=== PATIENT | female | born 1960 | race Caucasian/White ===

== ENCOUNTER 2018-10-30 15:01 | Inpatient (IN) | payer OTHER ==
[2018-10-30 16:45] VITALS: BMI 19.5
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
[2018-10-30] MEDS ORDERED: NICOTINE POLACRILEX 2 MG GUM BUC PRN (21:00)
[2018-10-30] MEDS ORDERED: BISMUTH SUBSALICYLATE 524 MG/30 ML UD PO PRN (21:00)
[2018-10-30] MEDS ORDERED: ACETAMINOPHEN 325 MG TABLET (FP) PO PRN ×2 (21:00)
[2018-10-30] MEDS ORDERED: MENTHOL/PHENOL 1 EACH UD MM PRN (21:00)
[2018-10-30] MEDS ORDERED: MAGNESIUM CITRATE 300 ML BOTTLE PO PRN (21:00)
[2018-10-30] MEDS ORDERED: MAG HYDROX/AL HYDROX/SIMETH 30 ML UNIT-DOSE CUP PO PRN (21:00)
[2018-10-30] MEDS ORDERED: MAGNESIUM HYDROX 2400MG/30ML ORAL SUSPENSION 30 ML CUP PO PRN (21:00)
[2018-10-30] MEDS ORDERED: ALBUTEROL SO4 8 GM HFA INHALER IH PRN (21:53)
[2018-10-30] MEDS: THIAMINE HCL 100 MG TABLET (FP) PO SCH (22:14)
[2018-10-30] MEDS: GABAPENTIN 100 MG CAPSULE (FP) PO SCH (22:15)
[2018-10-30] MEDS: diazePAM 5 MG TABLET PO SCH (22:16)
[2018-10-31] MEDS ORDERED: METHADONE HCL 10 MG TABLET PO SCH (07:30)
[2018-10-31] MEDS: diazePAM 5 MG TABLET PO SCH ×3 (07:55→22:27)
[2018-10-31] MEDS ORDERED: METHADONE HCL 10 MG TABLET ONE (08:16)
[2018-10-31] MEDS ORDERED: METHADONE HCL 40 MG DISPERSABLE TABLET ONE (08:17)
[2018-10-31] MEDS: METHADONE 80 MG, METHADONE 10 MG PO SCH (08:46)
[2018-10-31] MEDS: IBUPROFEN 400 MG TABLET (FP) PO PRN (08:47)
[2018-10-31] MEDS: GABAPENTIN 100 MG CAPSULE (FP) PO SCH ×2 (10:22→22:26)
[2018-10-31] MEDS: PRENATAL VITAMINS W/ FOLIC ACID TABLET (FP) PO SCH (10:22)
[2018-10-31] MEDS: diazePAM 5 MG TABLET PO PRN (10:23)
[2018-10-31] MEDS: NICOTINE 14 MG/24 HOURS TOPICAL PATCH TD SCH (10:23)
[2018-10-31 10:49] LABS: HEMATOCRIT 31.5 % (32.4-45.2); HEMOGLOBIN 10.4 GM/dL (10.7-15.3); MCH 31.7 pg (25.7-33.7); MEAN CELL VOLUME 96.1 fl (80-96); MEAN PLT VOLUME 8.5 fl (7.5-11.1); PLATELET COUNT 261 K/MM3 (134-434); RBC 3.27 M/mm3 (3.60-5.2); RDW 14.4 % (11.6-15.6); WHITE BLOOD COUNT 2.7 K/mm3 (4.0-10.0)
[2018-10-31 11:01] LABS: ALBUMIN 3.4 g/dl (3.4-5.0); BILIRUBIN,TOTAL 1.2 mg/dL (0.2-1); BLOOD UREA NITROGEN 12.8 mg/dL (7-18); CALCIUM 8.8 mg/dL (8.5-10.1); CREATININE 0.7 mg/dL (0.55-1.3); POTASSIUM 4.6 mmol/L (3.5-5.1); TOT PROT 6.6 g/dl (6.4-8.2)
--- NOTE | 2018-10-31 11:40 | PN ---
[facility] CIWA - CIWA Score Nausea/Vomitin Muscle Tremors: 3 Anxiety: 2 Agitation: 2 Paroxysmal Sweats: 2 Orientation: 0-Oriented Tacttile Disturbances: 0-None Auditory Disturbances: 0-None Visual Disturbances: 0-None Headache: 1-Very Mild CIWA-Ar Total Score: 16 S COWS - Scale Resting Pulse: 0= IN 80 or Below Sweatin= Chills/Flushing Restless Observation: 1= Difficult to Sit Still Pupil Size: 0= Normal to Room Light Bone or Joint Aches: 2= Severe Diffuse Aches Runny Nose/ Eye Tearin= Nasal Congestion GI Upset > 30mins: 3= Vomiting/Diarrhea Tremor Observation of Outstretched Hands: 2= Slight Tremor Visible Yawning Observation: 0= None Anxiety or Irritability: 1=Feels Anxious/Irritable Goose Flesh Skin: 0=Smooth Skin COWS Score: 11 S Progress Note (SOAP) Subjective: Patient is still having withdrawal symptoms from alcohol and opioids. She is very uncomfortable. Objective: 10/31/18 11:40 Vitals: BP: 120/76 P:63/min R:18/min T:98.1 Patient agitated and seen while pacing hallway with blanket over her shoulders. Laboratory 10/31/18 10/31/18 07:00 07:00 WBC 2.7 K/mm3 L K/mm3 (4.0-10.0) RBC 3.27 M/mm3 L M/mm3 (3.60-5.2) Hgb 10.4 GM/dL L GM/dL (10.7-15.3) Hct 31.5 % L % (32.4-45.2) MCV 96.1 fl H fl (80-96) MCH 31.7 pg pg (25.7-33.7) MCHC 33.0 g/dl g/dl (32.0-36.0) RDW 14.4 % % (11.6-15.6) Plt Count 261 K/MM3 K/MM3 (134-434) MPV 8.5 fl fl (7.5-11.1) Sodium 144 mmol/L mmol/L (136-145) Potassium 4.6 mmol/L mmol/L (3.5-5.1) Chloride 110 mmol/L H mmol/L (98-107) Carbon Dioxide 31 mmol/L mmol/L (21-32) Anion Gap 3 MMOL/L L MMOL/L (8-16) BUN 12.8 mg/dL mg/dL (7-18) Creatinine 0.7 mg/dL mg/dL (0.55-1.3) Est GFR (CKD-EPI)AfAm 110.69 Est GFR (CKD-EPI)NonAf 95.50 Random Glucose 81 mg/dL mg/dL (74-106) Calcium 8.8 mg/dL mg/dL (8.5-10.1) Total Bilirubin 1.2 mg/dL H mg/dL (0.2-1) AST 13 U/L L U/L (15-37) ALT 16 U/L U/L (13-61) Alkaline Phosphatase 61 U/L U/L (45-117) Total Protein 6.6 g/dl g/dl (6.4-8.2) Albumin 3.4 g/dl g/dl (3.4-5.0) 10/31/18 11:41 Assessment: 10/31/18 11:43 1. Opiate Dependence and Alcohol Withdrawals, uncomplicated 10/31/18 11:45 Plan: 1. Alcohol Withdrawals: Patient has just started protocol. Advised patient to be patient She just received her methadone dose. Continue protocol. 2. Microcytic Anemia: Most likely iron deficiency. Will add iron supplementation 3. HyperChloremia: May be secondary to dehydration and vomitting. Will encourage more po fluids. Dr. Pastor
[2018-10-31] MEDS: FERROUS SO4 325 MG TABLET (FP) PO SCH (13:11)
--- NOTE | 2018-10-31 13:46 | EKG ---
Test Reason : Blood Pressure : / mmHG Vent. Rate : 055 BPM Atrial Rate : 055 BPM P-R Int : 136 ms QRS Dur : 078 ms QT Int : 464 ms P-R-T Axes : 066 071 064 degrees QTc Int : 443 ms SINUS BRADYCARDIA WITH SINUS ARRHYTHMIA VOLTAGE CRITERIA FOR LEFT VENTRICULAR HYPERTROPHY NO PREVIOUS ECGS AVAILABLE Confirmed by DAVID MCMILLAN MD ([id number]) on 10/31/2018 1:45:36 PM Referred By: Confirmed By:DAVID MCMILLAN MD
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
[2018-10-31] MEDS: THIAMINE HCL 100 MG TABLET (FP) PO SCH (22:27)
[2018-10-31] MEDS: METHOCARBAMOL 500 MG TABLET PO PRN (22:28)
[2018-11-01] MEDS ORDERED: METHADONE HCL 40 MG DISPERSABLE TABLET ONE (04:46)
[2018-11-01] MEDS ORDERED: METHADONE HCL 10 MG TABLET ONE (04:46)
[2018-11-01] MEDS: diazePAM 5 MG TABLET PO SCH ×2 (06:07→17:47)
[2018-11-01] MEDS: METHADONE 80 MG, METHADONE 10 MG PO SCH (06:07)
[2018-11-01] MEDS: PRENATAL VITAMINS W/ FOLIC ACID TABLET (FP) PO SCH (10:08)
[2018-11-01] MEDS: NICOTINE 14 MG/24 HOURS TOPICAL PATCH TD SCH (10:08)
[2018-11-01] MEDS: FERROUS SO4 325 MG TABLET (FP) PO SCH (10:08)
[2018-11-01] MEDS: GABAPENTIN 100 MG CAPSULE (FP) PO SCH ×2 (10:08→22:32)
[2018-11-01] MEDS: METHOCARBAMOL 500 MG TABLET PO PRN ×2 (10:09→22:33)
[2018-11-01] MEDS: diazePAM 5 MG TABLET PO PRN ×2 (10:51→22:33)
--- NOTE | 2018-11-01 13:15 | PN ---
S CIWA - CIWA Score Nausea/Vomitin-No Nausea/No Vomiting Muscle Tremors: None Anxiety: 3 Agitation: 0-Normal Activity Paroxysmal Sweats: 3 Orientation: 0-Oriented Tacttile Disturbances: 0-None Auditory Disturbances: 0-None Visual Disturbances: 0-None Headache: 0-None Present CIWA-Ar Total Score: 6 BHS Progress Note (SOAP) Subjective: c/o anxiety and sweats. Objective: 11/01/18 13:14 Vital Signs 11/01/18 11/01/18 06:51 10:52 Temperature 97 F L 97.5 F L Pulse Rate 67 75 Respiratory 18 18 Rate Blood Pressure 98/62 110/73 Lab Results WBC 2.7 K/mm3 (4.0-10.0) L 10/31/18 07:00 RBC 3.27 M/mm3 (3.60-5.2) L 10/31/18 07:00 Hgb 10.4 GM/dL (10.7-15.3) L 10/31/18 07:00 Hct 31.5 % (32.4-45.2) L 10/31/18 07:00 MCV 96.1 fl (80-96) H 10/31/18 07:00 MCHC 33.0 g/dl (32.0-36.0) 10/31/18 07:00 RDW 14.4 % (11.6-15.6) 10/31/18 07:00 Plt Count 261 K/MM3 (134-434) 10/31/18 07:00 Sodium 144 mmol/L (136-145) 10/31/18 07:00 Potassium 4.6 mmol/L (3.5-5.1) 10/31/18 07:00 Chloride 110 mmol/L (98-107) H 10/31/18 07:00 Carbon Dioxide 31 mmol/L (21-32) 10/31/18 07:00 Anion Gap 3 MMOL/L (8-16) L 10/31/18 07:00 BUN 12.8 mg/dL (7-18) 10/31/18 07:00 Creatinine 0.7 mg/dL (0.55-1.3) 10/31/18 07:00 Random Glucose 81 mg/dL (74-106) 10/31/18 07:00 Calcium 8.8 mg/dL (8.5-10.1) 10/31/18 07:00 Labs noted. Assessment: 11/01/18 13:14 AOX3, in no acute respiratory distress Full ROM, ambulating in the unit. withdrawal symptoms. Pt is for discharge tomorrow Plan: continue detox. Discharge in AM.
[2018-11-01 17:32] LABS: URINE APPEARANCE CLEAR; URINE BILIRUBIN NEGATIVE (NEGATIVE); URINE COLOR YELLOW; URINE GLUCOSE (UA) NEGATIVE (NEGATIVE); URINE KETONE NEGATIVE (NEGATIVE); URINE LEUK ESTERASE NEGATIVE (NEGATIVE); URINE NITRITE NEGATIVE (NEGATIVE); URINE PROTEIN NEGATIVE (NEGATIVE); URINE UROBILINOGEN 0.2 mg/dL (0.2-1.0)
[2018-11-01] MEDS: THIAMINE HCL 100 MG TABLET (FP) PO SCH (22:32)
[2018-11-02] MEDS: diazePAM 5 MG TABLET PO PRN ×2 (03:52→10:09)
[2018-11-02] MEDS ORDERED: METHADONE HCL 10 MG TABLET ONE (04:31)
[2018-11-02] MEDS ORDERED: METHADONE HCL 40 MG DISPERSABLE TABLET ONE (04:31)
[2018-11-02] MEDS: METHADONE 80 MG, METHADONE 10 MG PO SCH (05:30)
[2018-11-02] MEDS: METHOCARBAMOL 500 MG TABLET PO PRN (05:31)
[2018-11-02] MEDS ORDERED: diazePAM 5 MG TABLET PO ONE (06:00)
[2018-11-02 09:46] VITALS: BP 104/64; PULSE 82; TEMP 98.2
[2018-11-02] MEDS: PRENATAL VITAMINS W/ FOLIC ACID TABLET (FP) PO SCH (10:09)
[2018-11-02] MEDS: FERROUS SO4 325 MG TABLET (FP) PO SCH (10:09)
[2018-11-02] MEDS: GABAPENTIN 100 MG CAPSULE (FP) PO SCH (10:09)
[2018-11-02] MEDS: IBUPROFEN 400 MG TABLET (FP) PO PRN (10:10)
[2018-11-02] MEDS: NICOTINE 14 MG/24 HOURS TOPICAL PATCH TD SCH (11:05)
--- NOTE | 2018-11-02 12:13 | DS ---
[facility] Detox Discharge Summary Admission Date: 10/30/18 Discharge Date: 11/02/18 - History Present History: Alcohol Dependence, Sedative Dependence Additional Comments: 57 years old female admitted on 10/31/18 for acute alcohol and benzo withdrawal sx management doing well with valium detox protocol and methadone 90 mg po daily no complication throughout the detox stay alert oriented x 3 speech clearly steady gait denies chest pain no shortness of breathe clear lung bilaterally abdomen soft none tender Pertinent Past History: asthma anemia - Physical Exam Results Vital Signs: Vital Signs Temperature 98.2 F 11/02/18 09:45 Pulse Rate 82 11/02/18 09:45 Respiratory Rate 18 11/02/18 09:45 Blood Pressure 104/64 11/02/18 09:45 O2 Sat by Pulse Oximetry (%) Pertinent Admission Physical Exam Findings: alcohol and benzo withdrawal sx Laboratory Last Values WBC 2.7 K/mm3 (4.0-10.0) L 10/31/18 07:00 RBC 3.27 M/mm3 (3.60-5.2) L 10/31/18 07:00 Hgb 10.4 GM/dL (10.7-15.3) L 10/31/18 07:00 Hct 31.5 % (32.4-45.2) L 10/31/18 07:00 MCV 96.1 fl (80-96) H 10/31/18 07:00 MCH 31.7 pg (25.7-33.7) 10/31/18 07:00 MCHC 33.0 g/dl (32.0-36.0) 10/31/18 07:00 RDW 14.4 % (11.6-15.6) 10/31/18 07:00 Plt Count 261 K/MM3 (134-434) 10/31/18 07:00 MPV 8.5 fl (7.5-11.1) 10/31/18 07:00 Sodium 144 mmol/L (136-145) 10/31/18 07:00 Potassium 4.6 mmol/L (3.5-5.1) 10/31/18 07:00 Chloride 110 mmol/L (98-107) H 10/31/18 07:00 Carbon Dioxide 31 mmol/L (21-32) 10/31/18 07:00 Anion Gap 3 MMOL/L (8-16) L 10/31/18 07:00 BUN 12.8 mg/dL (7-18) 10/31/18 07:00 Creatinine 0.7 mg/dL (0.55-1.3) 10/31/18 07:00 Est GFR (CKD-EPI)AfAm 110.69 10/31/18 07:00 Est GFR (CKD-EPI)NonAf 95.50 10/31/18 07:00 Random Glucose 81 mg/dL (74-106) 10/31/18 07:00 Calcium 8.8 mg/dL (8.5-10.1) 10/31/18 07:00 Total Bilirubin 1.2 mg/dL (0.2-1) H 10/31/18 07:00 AST 13 U/L (15-37) L 10/31/18 07:00 ALT 16 U/L (13-61) 10/31/18 07:00 Alkaline Phosphatase 61 U/L (45-117) 10/31/18 07:00 Total Protein 6.6 g/dl (6.4-8.2) 10/31/18 07:00 Albumin 3.4 g/dl (3.4-5.0) 10/31/18 07:00 Urine Color Yellow 11/01/18 Unknown Urine Appearance Clear 11/01/18 Unknown Urine pH 5.0 (5.0-8.0) 11/01/18 Unknown Ur Specific [place] 1.021 (1.010-1.035) 11/01/18 Unknown Urine Protein Negative (NEGATIVE) 11/01/18 Unknown Urine Glucose (UA) Negative (NEGATIVE) 11/01/18 Unknown Urine Ketones Negative (NEGATIVE) 11/01/18 Unknown Urine Blood Negative (NEGATIVE) 11/01/18 Unknown Urine Nitrite Negative (NEGATIVE) 11/01/18 Unknown Urine Bilirubin Negative (NEGATIVE) 11/01/18 Unknown Urine Urobilinogen 0.2 mg/dL (0.2-1.0) 11/01/18 Unknown Ur Leukocyte Esterase Negative (NEGATIVE) 11/01/18 Unknown RPR Titer Nonreactive (NONREACTIVE) 10/31/18 07:00 lab noted - Treatment Hospital Course: Detox Protocol Followed, Detoxed Safely, Responded well, Discharged Condition Good, Rehab Referral Accepted Patient has Accepted [facility] - Medication Discharge Medications: Ambulatory Orders Albuterol Sulfate [Proventil HFA Inhaler -] 1 - 2 inh PO PRN PRN #0 [email or web address] 12/28/12 Gabapentin [Neurontin -] 200 mg PO BID #120 capsule 12/28/12 Ferrous Sulfate [Feosol] 325 mg PO DAILY 11/02/18 - Diagnosis (1) Anemia Status: Chronic Qualifiers: Anemia type: iron deficiency Iron deficiency anemia type: unspecified iron deficiency Qualified Code(s): D50.9 - Iron deficiency anemia, unspecified (2) Sedative, hypnotic or anxiolytic dependence with withdrawal, uncomplicated Status: Acute (3) Asthma Status: Chronic (4) Substance induced mood disorder Status: Suspected (5) Alcohol dependence with uncomplicated withdrawal Status: Acute - AMA Did Patient Leave Against Medical Advice: No
== END 2018-11-02 11:21 | disposition other institution (70) | DRG 773 ==
LOC: YASAS 15:01 → Y3N 20:59
PROVIDERS: ADMIT Surgery; ATTEND Surgery
PROC: HZ2ZZZZ Detoxification Services for Substance Abuse Treatment (ICD-10-PCS; principal; 2018-10-30)
DX: F10.230 Alcohol dependence with withdrawal, uncomplicated (principal); F11.20 Opioid dependence, uncomplicated; F13.230 Sedative, hypnotic or anxiolytic dependence with withdrawal, uncomplicated; F14.20 Cocaine dependence, uncomplicated; F17.210 Nicotine dependence, cigarettes, uncomplicated; F19.24 Other psychoactive substance dependence with psychoactive substance-induced mood disorder; D50.9 Iron deficiency anemia, unspecified; J45.909 Unspecified asthma, uncomplicated; E87.8 Other disorders of electrolyte and fluid balance, not elsewhere classified; G40.909 Epilepsy, unspecified, not intractable, without status epilepticus; M54.9 Dorsalgia, unspecified; G89.29 Other chronic pain; Z91.19 Patient's noncompliance with other medical treatment and regimen; Z91.5 Personal history of self-harm
CPT/HCPCS: 36415; 80053; 81003; 85027; 86480; 86593; 93005; 93010